=== PATIENT | male | born 1990 | race Asian ===

== ENCOUNTER 2021-08-10 19:14 | Emergency (ER) | payer OTHER ==
[~2021-08-10] VITALS: Ht 167.6 cm; Wt 83.0 kg
[2021-08-10 19:32] VITALS: BP 126/77
[2021-08-10 22:00] LABS: HEPATITIS B SURFACE AB 7.2 mIU/mL
[2021-08-10 22:11] LABS: HEPATITIS B SURFACE ANTIGEN NEGATIVE
[2021-08-13 04:07] LABS: HIV SCREEN 4G Non Reactive (Non Reactive)
== END 2021-08-11 00:51 | disposition home or self-care (01) ==
LOC: ER 19:14
DX: Z77.21 Contact with and (suspected) exposure to potentially hazardous body fluids (principal)
CPT/HCPCS: 36415; 87389; 87522; 99281